=== PATIENT | male | born 1955 | race Caucasian/White ===

== ENCOUNTER 2017-04-18 09:07 | Emergency (ER) | payer SELFPAY ==
[~2017-04-18] VITALS: Ht 182.9 cm; Wt 100.0 kg
[~2017-04-18 09:07] MED LIST: Z.0.NO CURRENT MEDS
[2017-04-18 09:08] VITALS: BP 173/95; PULSE 73; RESP 16; TEMP 98.4; O2SAT 96
[2017-04-18] MEDS ORDERED: FAMOTIDINE 20 MG TAB PO ONE (09:45)
[2017-04-18] MEDS ORDERED: CLINDAMYCIN 150 MG CAP PO ONE (09:45)
[2017-04-18] MEDS ORDERED: DEXAMETHASONE SOD PHOS 20 MG/5 ML VIAL IM ONE (09:45)
[2017-04-18] MEDS ORDERED: diphenhydrAMINE HCL 50 MG CAP PO ONE (09:45)
[2017-04-18] MEDS ORDERED: CLIN300C5 PO (10:08)
[2017-04-18] MEDS ORDERED: PRED20 PO (10:08)
[2017-04-18] MEDS ORDERED: FAMO1TAB37 PO (10:08)
[2017-04-18] MEDS ORDERED: EPIP0.3I IM (10:09)
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
[2017-04-18 11:24] VITALS: BP 163/74
== END 2017-04-18 11:26 | disposition home or self-care (01) ==
LOC: NEPD 09:07
DX: L08.9 Local infection of the skin and subcutaneous tissue, unspecified (principal); T78.40XA Allergy, unspecified, initial encounter
CPT/HCPCS: 96372; 99284; J1100; Q0163